=== PATIENT | male | born 1995 | race Caucasian/White ===

== ENCOUNTER 2017-10-02 20:23 | Emergency (ER) | payer SELFPAY | END 2017-10-02 21:34 | disposition left against medical advice (07) | LOC: D.ER 20:23 | DX: R21 Rash and other nonspecific skin eruption (principal) ==

== ENCOUNTER 2017-12-24 16:01 | Emergency (ER) | payer MEDICAID ==
[~2017-12-24] VITALS: Ht 182.9 cm; Wt 111.4 kg
[2017-12-24 16:14] VITALS: Ht 182.9 cm; Wt 111.4 kg
[2017-12-24] MEDS ORDERED: NOVOLIN 70/30 110 ML SC (16:16)
[2017-12-24] MEDS ORDERED: PREDNISONE20 MG PO (18:15)
[2017-12-24] MEDS ORDERED: PERMETHRIN60 GM TOPICAL (18:15)
[2017-12-24] MEDS ORDERED: KENALOG 0.1 % 115 GM TOPICAL (18:15)
[2017-12-24 18:40] VITALS: BP 129/79
== END 2017-12-24 18:40 | disposition home or self-care (01) ==
LOC: D.ER 16:01
DX: L30.9 Dermatitis, unspecified (principal); L73.2 Hidradenitis suppurativa; E11.9 Type 2 diabetes mellitus without complications

== ENCOUNTER 2019-05-31 07:40 | Day surgery (SDC) | payer MEDICAID ==
[~2019-05-31] VITALS: Ht 180.3 cm; Wt 115.2 kg
[~2019-05-31 07:40] MED LIST: BASAGLAR K100 UNIT/1 SC; KENALOG 0.1 % 115 GM TOPICAL; LISINOPRIL10 MG PO; NOVOLIN 70/30 110 ML SC; NOVOLOG100 UNIT/1 SC; PERMETHRIN60 GM TOPICAL; PREDNISONE20 MG PO
[2019-05-31 08:17] LABS: BASOPHILS 0.2 % (0-2); EOSINOPHILS 1.3 % (0-7); HEMATOCRIT 46.8 % (42.0-54.0); HEMOGLOBIN 15.6 g/dL (13.5-17.5); IMMATURE GRANULOCYTES 0.2 % (0-5); LYMPHOCYTES 25.9 % (15-50); MCH 28.3 pg (26.0-34.0); MCHC 33.3 g/dL (31.0-37.0); MCV 84.9 fL (80.0-100.0); MEAN PLATELET VOLUME 8.3 fL (7.4-10.4); MONOCYTES 8.1 % (2-11); NEUTROPHILS 64.3 % (40-80); PLATELET COUNT 319 10x3/uL (130-400); RBC 5.51 10x6/uL (4.20-6.10); RDW 12.1 % (11.5-14.5); WBC 9.5 10x3/uL (4.8-10.8)
[2019-05-31 08:24] LABS: CALC OSMOLALITY 281 mosm/kg (275-300); CALCIUM 8.7 mg/dL (8.5-10.1); CARBON DIOXIDE 28.1 mmol/L (21.0-32.0); CHLORIDE - SERUM 102 mmol/L (98-107); POTASSIUM - SERUM 3.4 mmol/L (3.5-5.1); SODIUM 139 mmol/L (136-145); UREA NITROGEN 17 mg/dL (7-18); eGFR NON AFRICAN AMERICAN > 90 mL/min (90-120)
[2019-05-31 08:41] LABS: GLUCOSE 140 mg/dL (74-106)
[2019-05-31 08:51] VITALS: BP 139/65; Ht 180.3 cm; Wt 115.2 kg
[2019-05-31] MEDS ORDERED: HYDROCODON-ACE1 EAC7 PO (11:46)
--- NOTE | 2019-05-31 12:37 | NUR ---
1230 PT'S ADVOCATE, GISELE, WAS CALLED AND NOTIFIED THAT PT IS BACK IN HIS ROOM AND DOING WELL.
--- NOTE | 2019-05-31 12:48 | NUR ---
1245 PT GIVEN A NORCO FOR ACHING PAIN AT SURGICAL SITE. RATES PAIN A 3 OUT OF 10.
--- NOTE | 2019-05-31 14:04 | NUR ---
1320-DISCHARGE CRITERIA MET. REMOVED IV WITH CATH INTACT,DISPOSED INTO SHARPS.COVERED SITE WITH COTTON BALL SECURED WITH MEDIPORE TAPE. AWAITING FOR MOTHER TO ARRIVE FOR TRANSPORTATION HOME
--- NOTE | 2019-05-31 14:05 | NUR ---
1345-ESCORTED OUT VIA W/C WITH MOTHER AWAITING TO DRIVE HOME
--- NOTE | 2019-05-31 14:05 | NUR ---
1458-REVIEWED POST OPERATIVE INSTRUCTIONS AND FOLLOW UP APPOINTMENT. VERBALIZED UNDERSTANDING. CONTINUE TO WAIT FOR TRANSPORTATION
--- NOTE | 2019-06-02 08:57 | OP ---
PATIENT NAME: BETY FLORENCE II MEDICAL RECORD: [id number] :97 LOCATION:[facility] ADMISSION DATE: SURGEON: ZANA KAY DO DATE OF OPERATION: 05/31/2019 PROCEDURE PERFORMED: Right fifth metacarpal closed reduction percutaneous pinning. PREOPERATIVE DIAGNOSIS: Displaced right fifth metacarpal neck fracture. POSTOPERATIVE DIAGNOSIS: Displaced right fifth metacarpal neck fracture. INDICATIONS: Mr. Florence is a 24-year-old male who presented to my office after being seen in urgent care. He had struck a wall. He had a fifth metacarpal neck fracture that was angulated approximately 45 degrees apex dorsal. I informed him that we could leave it. 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 SURGEON: Zana Kay DO PROCEDURE: The patient had block by anesthesia in the preoperative area, taken to the operative suite, laid in supine position, given general anesthetic and LMA was placed and given 2 grams Ancef preoperatively. The right upper extremity was then prepped and draped in sterile fashion. A timeout was performed, everyone was in agreement with the correct site, correct side, the patient and procedure. I then did a reduction maneuver, and once it was in adequate position, fired a K-wire from distal to proximal to the shoulder of the fifth metacarpal head through the fracture site exiting the shaft just proximal to the fracture. We then put another pin in from proximal to distal through the same crossing of the pin through the head and through fracture site holding it nicely. This was confirmed to be in good position on AP and lateral and then bent them and cut them and dressed with Adaptic, 4 x 4s, cast padding, and put an intrinsic plus splint on him. He was then awakened and taken to recovery in stable condition. BLOOD LOSS: Minimal. COMPLICATIONS: None. TRANSINT:[id number] Voice Confirmation ID: [id number] DOCUMENT ID: [id number] ZANA KAY, at 0857 CC: [id number] DICTATION DATE: 05/31/19 1150 [employer] WORKER: 05/31/19 2136 [facility] 05/31/19 [id number] [place] [address]
== END 2019-05-31 13:45 | disposition home or self-care (01) ==
LOC: D.PAN 07:40 → D.OPS 10:30 → D.PAN 10:30
PROVIDERS: Anesthesiology; ATTEND Orthopaedic Surgery
DX: S62.336A Displaced fracture of neck of fifth metacarpal bone, right hand, initial encounter for closed fracture (principal); X58.XXXA Exposure to other specified factors, initial encounter